=== PATIENT | male | born 1975 | race Two or more races ===

== ENCOUNTER 2022-06-02 02:46 | Inpatient (IN) | payer SELFPAY ==
[~2022-06-02] VITALS: Ht 167.6 cm; Wt 77.3 kg
[2022-06-02] MEDS ORDERED: ACETAMINOPHEN 325 MG TABLET PO ONE (03:30)
[2022-06-02] MEDS ORDERED: SODIUM CHLORIDE 0.9% 1,000 ML IV ONE (03:30)
[2022-06-02] MEDS ORDERED: FAMOTIDINE 10 MG/ML 2 ML VIAL IVP ONE (03:30)
[2022-06-02 03:40] LABS: BASOPHILS % (AUTO) 0.6 % (0.0-2.0); HEMATOCRIT 40.2 % (41-53); HEMOGLOBIN 13.4 g/dL (13.5-17.5); LYMPHOCYTES # (AUTO) 2.2 K/uL (1.0-4.8); MEAN CORPUSCULAR HGB CONC 33.3 G/dL (31.0-37.0); MEAN CORPUSCULAR VOLUME 90 fL (80-100); MONOCYTES # (AUTO) 0.9 K/uL (0.1-1.0); MONOCYTES % (AUTO) 6.4 % (2.0-9.0); NEUTROPHILS # (AUTO) 10.1 K/uL (1.8-7.7); PLATELET COUNT (AUTO) 327 K/uL (150-450); RED BLOOD CELL COUNT(AUTO) 4.46 MIL/uL (4.50-5.90); RED CELL DISTRIBUTION WIDTH 13.2 % (11.5-14.5)
[2022-06-02 03:45] LABS: ANION GAP 10 mmol/L (8-16); CALCIUM, TOTAL 9.2 mg/dL (8.8-10.5); CARBON DIOXIDE 26 mmol/L (22-29); CHLORIDE 100 mmol/L (98-107); CREATININE 1.05 mg/dL (0.60-1.30); GLUCOSE,RANDOM 114 mg/dL (70-110); POTASSIUM 3.7 mmol/L (3.5-5.1); SODIUM SERUM 136 mmol/L (136-145); UREA NITROGEN, BLOOD 12 mg/dL (7-18)
[2022-06-02 03:53] LABS: ALANINE AMINOTRANSFERASE 37 U/L (12-78); ALBUMIN 3.7 g/dL (3.4-5.0); ALKALINE PHOSPHATASE 116 U/L (46-116); ASPARTATE AMINOTRANSFERASE 16 U/L (15-37); BILIRUBIN,TOTAL 0.6 mg/dL (0.1-1.0); LIPASE 147 U/L (73-393); TOTAL PROTEIN, SERUM 7.9 g/dL (6.4-8.2)
[2022-06-02 03:54] LABS: GLOMERULAR FILTR. RATE CALC > 60 mL/min (>60)
[2022-06-02] MEDS ORDERED: SODIUM CHLORIDE 0.9% 100 ML ONE (04:15)
[2022-06-02] MEDS ORDERED: IOHEXOL 350 MG/ML 100 ML VIAL ONE (04:16)
[2022-06-02 04:47] LABS: APPEARANCE,URINE CLEAR (CLEAR); BILIRUBIN,URINE NEGATIVE (NEGATIVE); GLUCOSE, URINE (UA) NEGATIVE (NEGATIVE); KETONES,URINE TRACE mg/dL (NEGATIVE); LEUKOCYTE ESTERASE ,URINE NEGATIVE (NEGATIVE); NITRATE,URINE NEGATIVE (NEGATIVE); OCCULT BLOOD,URINE NEGATIVE (NEGATIVE); PROTEIN,URINE NEGATIVE (NEGATIVE); UROBILINOGEN,URINE <=1.0 mg/dL (<=1.0)
[2022-06-02] MEDS ORDERED: CefTRIAXone 1 GM/DEXTROSE 50 ML IV ONE (05:15)
[2022-06-02] MEDS ORDERED: MetroNIDAZOLE 500 MG/NACL 100 ML IV ONE (05:15)
[2022-06-02 05:32] LABS: INR 1.1 (0.9-1.1); PROTHROMBIN TIME 11.3 SEC (9.4-11.6)
[2022-06-02] MEDS ORDERED: BUPIVACAINE HCL/PF 0.5% 30 ML VIAL ONE (07:20)
[2022-06-02] MEDS ORDERED: SODIUM CHLORIDE 0.9% 1,000 ML ONE (07:20)
[2022-06-02] MEDS ORDERED: LIDOCAINE 2%/EPI 1:200,000/PF 20 ML VIAL ONE (07:20)
[2022-06-02] MEDS ORDERED: RINGERS SOLUTION,LACTATED 1,000 ML IV ONE ×2 (07:39→07:45)
[2022-06-02] MEDS ORDERED: ACETAMINOPHEN 1000 MG/ISO-OSM 100 ML IV ONE (07:48)
[2022-06-02] MEDS ORDERED: SUGAMMADEX SODIUM 200 MG/2 ML VIAL IVP ONE (07:48)
[2022-06-02 08:28] LABS: COVID AG,FIA SOURCE NASAL SWAB
[2022-06-02] MEDS ORDERED: RINGERS SOLUTION,LACTATED 1,000 ML IV SCH (08:30)
[2022-06-02] MEDS ORDERED: MORPHINE SULFATE 2 MG/ML SYRINGE IVP PRN ×2 (08:30→20:30)
[2022-06-02] MEDS ORDERED: ONDANSETRON HCL 4 MG/2 ML VIAL IVP PRN ×2 (08:30→20:30)
[2022-06-02] MEDS ORDERED: HYDROmorphone HCL 2 MG/ML SYRINGE IVP PRN (08:30)
[2022-06-02] MEDS ORDERED: MEPERIDINE-PF 25 MG/ML VIAL IVP PRN (08:30)
[2022-06-02] MEDS ORDERED: IBUPROFEN 800 MG TABLET PO PRN (08:30)
[2022-06-02] MEDS ORDERED: ACETAMINOPHEN 500 MG TABLET PO PRN (08:30)
[2022-06-02] MEDS ORDERED: HYDROCODONE/ACETAMINOPHEN 5-325 MG TABLET PO PRN ×2 (08:30→20:30)
[2022-06-02] MEDS ORDERED: FentaNYL CITRATE PF 100 MCG/2 ML VIAL IVP PRN (08:30)
[2022-06-02 10:32] VITALS: BP 118/78
[2022-06-02 10:43] VITALS: BP 118/78
[2022-06-02] MEDS: CeFAZolin 1 GM/DEXTROSE 50 ML IV SCH ×2 (11:34→16:46)
[2022-06-02] MEDS: MetroNIDAZOLE 500 MG/NACL 100 ML IV SCH ×2 (12:36→18:01)
[2022-06-02] MEDS ORDERED: INFLUENZA VIRUS VACCINE QVS 2022-23 (6MO+)/PF 60 MCG/0.5 ML SYRINGE IM. ONE (13:00)
[2022-06-02 15:23] VITALS: BP 126/79
[2022-06-02 19:36] VITALS: BP 117/70
[2022-06-02] MEDS: OXYGEN THERAPY IH SCH (20:00)
[2022-06-02] MEDS ORDERED: ZOLPIDEM TARTRATE 5 MG TABLET PO PRN (20:30)
[2022-06-02] MEDS ORDERED: BISACODYL 10 MG RECTAL RECTAL SUPPOSITORY PR PRN (20:30)
[2022-06-02] MEDS ORDERED: MAGNESIUM HYDROXIDE SUSPENSION 30 ML UDCUP PO PRN (20:30)
[2022-06-02] MEDS ORDERED: ALBUTEROL SULFATE 2.5 MG/0.5 ML NEB SOLUTION NEB PRN (20:30)
[2022-06-02] MEDS ORDERED: IPRATROPIUM BROMIDE 0.5 MG/2.5 ML NEB SOLUTION NEB PRN (20:30)
[2022-06-02] MEDS ORDERED: ACETAMINOPHEN 325 MG TABLET PO PRN (20:30)
[2022-06-02] MEDS: DOCUSATE SODIUM 100 MG CAPSULE PO SCH (21:00)
[2022-06-02] MEDS: HEPARIN SODIUM,PORCINE 5,000 UNITS/ML VIAL SQ SCH (23:41)
[2022-06-03 03:42] VITALS: BP 106/71
[2022-06-03] MEDS ORDERED: CefTRIAXone 1 GM/DEXTROSE 50 ML IV SCH (05:00)
[2022-06-03] MEDS ORDERED: PROPOFOL 1% 20 ML VIAL IVP ONE (06:30)
[2022-06-03] MEDS ORDERED: ONDANSETRON HCL 4 MG/2 ML VIAL IVP ONE (06:30)
[2022-06-03] MEDS ORDERED: LIDOCAINE/PF 2% 5 ML VIAL IM ONE (06:30)
[2022-06-03] MEDS ORDERED: KETOROLAC TROMETHAMINE 60 MG/2 ML VIAL IM ONE (06:30)
[2022-06-03] MEDS ORDERED: ROCURONIUM BROMIDE 10 MG/ML 5 ML VIAL IVP ONE (06:30)
[2022-06-03] MEDS ORDERED: FentaNYL CITRATE PF 100 MCG/2 ML VIAL IVP ONE (06:33)
[2022-06-03] MEDS ORDERED: MIDAZOLAM HCL 2 MG/2 ML VIAL IVP ONE (06:33)
[2022-06-03] MEDS: HEPARIN SODIUM,PORCINE 5,000 UNITS/ML VIAL SQ SCH ×2 (07:41→16:00)
[2022-06-03] MEDS: OXYGEN THERAPY IH SCH (08:00)
[2022-06-03] MEDS ORDERED: PANTOPRAZOLE SODIUM 40 MG/VIAL IVP SCH (09:00)
[2022-06-03] MEDS: DOCUSATE SODIUM 100 MG CAPSULE PO SCH (09:00)
[2022-06-03] MEDS ORDERED: AMOX1TAB16 PO (14:50)
[2022-06-03 15:00] LABS: BASOPHILS % (AUTO) 1.1 % (0.0-2.0); EOSINOPHILS % (AUTO) 3.5 % (1.0-6.0); HEMATOCRIT 39.1 % (41-53); HEMOGLOBIN 13.2 g/dL (13.5-17.5); LYMPHOCYTES # (AUTO) 2.1 K/uL (1.0-4.8); LYMPHOCYTES % (AUTO) 25.5 % (22.0-44.0); MEAN CORPUSCULAR HEMOGLOBIN 30.4 pg (26.0-34.0); MEAN CORPUSCULAR HGB CONC 33.7 G/dL (31.0-37.0); MEAN CORPUSCULAR VOLUME 90 fL (80-100); MONOCYTES # (AUTO) 0.6 K/uL (0.1-1.0); MONOCYTES % (AUTO) 7.4 % (2.0-9.0); NEUTROPHILS # (AUTO) 5.2 K/uL (1.8-7.7); NEUTROPHILS % (AUTO) 62.5 % (40.0-70.0); PLATELET COUNT (AUTO) 304 K/uL (150-450); RED BLOOD CELL COUNT(AUTO) 4.34 MIL/uL (4.50-5.90)
[2022-06-03 15:12] LABS: ANION GAP 2 mmol/L (8-16); CALCIUM, TOTAL 8.8 mg/dL (8.8-10.5); CARBON DIOXIDE 29 mmol/L (22-29); CHLORIDE 105 mmol/L (98-107); CREATININE 1.12 mg/dL (0.60-1.30); GLUCOSE,RANDOM 103 mg/dL (70-110); POTASSIUM 3.7 mmol/L (3.5-5.1); SODIUM SERUM 136 mmol/L (136-145); UREA NITROGEN, BLOOD 10 mg/dL (7-18)
[2022-06-03 15:13] LABS: GLOMERULAR FILTR. RATE CALC > 60 mL/min (>60)
[2022-06-03 15:18] LABS: ALANINE AMINOTRANSFERASE 28 U/L (12-78); ALBUMIN 3.2 g/dL (3.4-5.0); ALKALINE PHOSPHATASE 105 U/L (46-116); ASPARTATE AMINOTRANSFERASE 16 U/L (15-37); BILIRUBIN,TOTAL 0.3 mg/dL (0.1-1.0); TOTAL PROTEIN, SERUM 7.3 g/dL (6.4-8.2)
== END 2022-06-03 16:30 | disposition home or self-care (01) | DRG 343 ==
LOC: EMS 02:48 → 6N 07:50
PROVIDERS: ADMIT Hospitalist; ATTEND Hospitalist
PROC: 0DTJ4ZZ Resection of Appendix, Percutaneous Endoscopic Approach (ICD-10-PCS; principal; 2022-06-02 07:55)
DX: K35.80 Unspecified acute appendicitis (principal); K52.9 Noninfective gastroenteritis and colitis, unspecified; Z20.822 Contact with and (suspected) exposure to COVID-19; Z79.899 Other long term (current) drug therapy
CPT/HCPCS: 74177; 80053; 81003; 83690; 85025; 85610; 85730; 86850; 86900; 86901; 96365; 99285; C9113; G0238; J0131; J0690; J0696; J1644; J1885; J2250; J2405; J2704; J3010; J3490; J7030; J7050; J7120; Q9967